=== PATIENT | female | born 1965 | race Caucasian/White ===

== ENCOUNTER 2016-10-02 11:15 | Outpatient (RCR) | payer BC ==
[~2016-10-02 11:15] MED LIST: EXCEDRIN ES PO; MULTIPLE VITAMI1 CAP PO; PRIL40 PO
== END 2016-10-03 11:05 ==
LOC: MKS.ESL.PT 11:15
DX: M54.5 Low back pain (principal)
CPT/HCPCS: G0283-GP

== ENCOUNTER → 2017-04-04 | Outpatient (CLI) | payer BC | LOC: COL.RAD 07-22 10:30 | DX: Z01.89 Encounter for other specified special examinations (principal) ==

== ENCOUNTER 2018-07-03 00:01 | Emergency (ER) | payer BC ==
[~2018-07-03] VITALS: Ht 167.6 cm; Wt 101.7 kg
[2018-07-03 00:09] VITALS: TEMP 97.1
[2018-07-03] MEDS ORDERED: ROBAXIN 50500 MG/TAB PO (00:26)
[2018-07-03] MEDS ORDERED: CELEBREX 200MG200 MG PO (00:26)
[2018-07-03] MEDS ORDERED: CYMBALTA 60MG60 MG PO (00:27)
[2018-07-03 00:39] LABS: BASO # 0.1 (0.0-0.2); BASO % 0.5 % (0.0-2.0); EOS # 0.3 (0.0-0.7); EOS % 2.1 % (0-4.0); GRAN # 9.3 (1.4-6.5); GRAN % 68.4 % (42.2-75.2); HEMATOCRIT 38.4 % (37.0-47.0); LYMPH # 3.2 (1.2-3.4); LYMPH % 23.5 % (20.0-51.0); MEAN CELL VOLUME 87 fl (80.0-100.0); MEAN CORPUSCULAR HEMOGLOBIN 30 pg (27.0-31.0); MEAN CORPUSCULAR HGB CONC 34 g/dl (33.0-37.0); MEAN PLATELET VOLUME 8.8 fl (7.4-10.4); MONO # 0.7 (0.1-0.6); MONO % 4.8 % (1.7-9.3); PLATELET COUNT 333 K/mm3 (130-400); RED BLOOD COUNT 4.41 M/mm3 (4.10-5.30); REDCELL DISTRIBUTION WIDTH-CV 12.9 % (11.5-14.5)
[2018-07-03 00:48] LABS: ALANINE AMINOTRANSFERASE < 6 U/L (9-52); ALBUMIN 4.3 gm/dL (3.5-5.0); ALKALINE PHOSPHATASE 124 U/L (50-136); ANION GAP 13 mmol/L (7-16); AST,SGOT 19 U/L (15-37); BILIRUBIN,TOTAL 0.2 mg/dL (0.0-1.0); BLOOD UREA NITROGEN 13 mg/dL (7-17); C-REACTIVE PROTEIN 0.5 mg/dL (0.0-0.9); CALCIUM 10.1 mg/dL (8.4-10.2); CARBON DIOXIDE 20 mmol/L (22-30); CHLORIDE 111 mmol/L (98-107); CREATININE, serum 0.87 (0.52-1.25); GLUCOSE 161 mg/dL (74-106); LIPASE 174 U/L (23-300); POTASSIUM 4.2 mmol/L (3.4-5.0); SODIUM 144 mmol/L (137-145); TOTAL PROTEIN 7.6 gm/dL (6.4-8.2)
[2018-07-03 01:35] LABS: COLLECTION METHOD CLEAN CATCH
[2018-07-03 01:54] LABS: MUCOUS Present /lpf; PH 5 (5-8); URINE APPEARANCE Cloudy; URINE BACTERIA Rare /hpf; URINE BILIRUBIN Negative (NEGATIVE); URINE BLOOD 3+ (NEGATIVE); URINE COLOR Amber; URINE GLUCOSE Negative (NEGATIVE); URINE KETONE Negative (NEGATIVE); URINE LEUKOCYTE ESTERASE Negative (NEGATIVE); URINE NITRATE Negative (NEGATIVE); URINE PROTEIN(semi-quant) 2+ (NEGATIVE); URINE RBC >50 /hpf; URINE UROBILINOGEN Negative (NEGATIVE)
[2018-07-03] MEDS ORDERED: ZOFRAN ODT4 MG PO (03:24)
[2018-07-03] MEDS ORDERED: PERCOCET 325 MG1 TA2 PO (03:24)
[2018-07-03] MEDS ORDERED: FLOMAX 0.40.4 MG/CAP PO (03:44)
[2018-07-03] MEDS ORDERED: CEPHALEXIN500 M1 PO (03:44)
[2018-07-03 03:55] VITALS: BP 124/81; PULSE 75
[2018-07-03] MEDS ORDERED: ZOFRAN 4MG T4 MG/TAB PO (03:57)
== END 2018-07-03 03:55 | disposition home or self-care (01) ==
LOC: COL.ER 00:01
PROVIDERS: Nurse Practitioner
DX: N13.2 Hydronephrosis with renal and ureteral calculous obstruction (principal); F41.9 Anxiety disorder, unspecified; F32.9 Major depressive disorder, single episode, unspecified; Z90.710 Acquired absence of both cervix and uterus; Z98.51 Tubal ligation status; Z90.49 Acquired absence of other specified parts of digestive tract; F17.210 Nicotine dependence, cigarettes, uncomplicated
CPT/HCPCS: J1170; J1885; J2405; J7030

== ENCOUNTER 2018-07-03 15:01 | Observation (INO) | payer BC ==
[2018-07-03] VITALS (9 sets, daily range): BP systolic 104–132; BP diastolic 69–89; PULSE 62–96; TEMP 98–98.5
[~2018-07-03] VITALS: Ht 167.6 cm; Wt 101.3 kg
[~2018-07-03 15:01] MED LIST changes: +CELEBREX 200MG200 MG PO; +CEPHALEXIN500 M1 PO; +CYMBALTA 60MG60 MG PO; +FLOMAX 0.40.4 MG/CAP PO; +PERCOCET 325 MG1 TA2 PO; +ROBAXIN 50500 MG/TAB PO; +ZOFRAN 4MG T4 MG/TAB PO; +ZOFRAN ODT4 MG PO
--- NOTE | 2018-07-03 16:00 | NUR ---
Pt arrived to floor at this time, ambulated with admission staff to room but in pain. Will get orders and get prepped for anticipated surgery time of 1700.
--- NOTE | 2018-07-03 17:00 | NUR ---
Pt left floor at this time via bed with OR staff. Consent signed. IV started to RW by student nurse. PRN pain meds provided. Will await return.
--- NOTE | 2018-07-03 18:50 | NUR ---
Pt to floor from PACU. No acute distress noted. Resp even and unlabored. Lungs clear. BS+. Goncalves to dependent drainage- urine is clear, pink. No clots noted. Pt denies nausea or pain at this time. VSS. Will continue to monitor.
--- NOTE | 2018-07-03 20:02 | NUR ---
Pt c/o pain 6/10 in bladder. Pain is described at cramping. PRN pain meds administered.
--- NOTE | 2018-07-03 21:10 | NUR ---
Pt continues to c/o cramping bladder pain and feeling of fullness. Bladder scan shows 0-30mL in bladder. Goncalves is draining clear, pink urine.
--- NOTE | 2018-07-03 21:18 | NUR ---
Dr Bean called about pts bladder spasms. Orders received for Flomax x1 and PRN Levsin.
--- NOTE | 2018-07-03 23:18 | NUR ---
Pt c/o pain 7/10 in bladder. PRN pain meds given. Pt alert and awake.
[2018-07-04] VITALS: BP 115/70; PULSE 85; TEMP 98.3
[2018-07-04 04:00] VITALS: BP 109/66; PULSE 57; TEMP 98.2
--- NOTE | 2018-07-04 06:15 | NUR ---
Pt resting with HOB elevated this AM. Pt reports that pain is much better this AM. Goncalves catheter to dependent drainage. Output is clear, light pink. No futher needs noted.
--- NOTE | 2018-07-04 07:00 | NUR ---
Pt resting in bed at this time. She is looking over the menu to order breakfast. Minimal pain at this time, pink tinged urine in the hendricks bag, no needs at this time and is hoping to go home today.
[2018-07-04 07:49] VITALS: BP 118/71; PULSE 70; TEMP 99.3
--- NOTE | 2018-07-04 09:00 | NUR ---
Pt had significant increase in pain in her lower pelvic area. Schedule pain medication given. Goncalves removed per physician order. Informed her that she may feel as if she needs to go, but is unable to right at first due to the bladder spasms. Pt has had breakfast and tolerated with no problems.
--- NOTE | 2018-07-04 09:01 | NUR ---
JADE met with the patient to discuss a discharge plan. The patient lives in [place] with her Juwan. The patient does not use any DME and the patient reports independence with ADLs. The patient's PCP is Dr. Castillo and the patient receives her medication from [facility]. The patient reports no difficulties obtaining her medications. The patient does not have advanced directives in the EMR, but she was interested in obtaining a DPOA-HC form. SW provided and explained the form to the patient. The patient plans to return home upon discharge. There are no additional needs at this time.
--- NOTE | 2018-07-04 11:30 | NUR ---
Dr Bean in to see patient. Discharge orders wrote. Discussed pain and bladder spasms as well as home instructions. No needs at this time, will continue to monitor.
[2018-07-04 12:23] VITALS: BP 116/61; PULSE 78; TEMP 98.1
--- NOTE | 2018-07-04 12:30 | NUR ---
Pt having significant increase in pain. Will give PRN medication.
--- NOTE | 2018-07-04 14:00 | NUR ---
Pt reported that the pain medication worked well and she is wanting to go home. Informed her that I would need to contact the physician as there are no scripts on the chart. Pt stated she was ok with that as she would order something to eat.
--- NOTE | 2018-07-04 15:30 | NUR ---
Pt tolerated her lunch with no nausea. Newly ordered medications given. Reviewed discharge instructions with her at this time. Reviewed prescriptions as well. No other needs, patient will get dressed and informed to ring when she is ready.
--- NOTE | 2018-07-04 15:54 | NUR ---
Pt being escorted out at this time.
--- NOTE | 2018-07-04 15:56 | NUR ---
INT removed by José Miguel RN
== END 2018-07-04 15:56 | disposition home or self-care (01) ==
LOC: SDCO 15:01 → EDSTATUS 15:22 → SURG 15:24
PROVIDERS: ADMIT Urology
DX: N20.1 Calculus of ureter (principal); Z79.899 Other long term (current) drug therapy; Z90.710 Acquired absence of both cervix and uterus; K21.9 Gastro-esophageal reflux disease without esophagitis; K44.9 Diaphragmatic hernia without obstruction or gangrene; G43.809 Other migraine, not intractable, without status migrainosus; R20.2 Paresthesia of skin; Z87.891 Personal history of nicotine dependence; Z87.442 Personal history of urinary calculi; N39.0 Urinary tract infection, site not specified; Z90.49 Acquired absence of other specified parts of digestive tract; Z80.9 Family history of malignant neoplasm, unspecified; E66.9 Obesity, unspecified
CPT/HCPCS: A4314; C1769; C2617; G0378; G0379; J0690; J1100; J1170; J1885; J1956; J2270; J2405; J2704; J3010; J7030; Q9967

== ENCOUNTER 2018-07-10 06:02 | Day surgery (SDC) | payer BC ==
[2018-07-10] VITALS (8 sets, daily range): BP systolic 105–125; BP diastolic 70–87; PULSE 77–93; TEMP 98.4–99
[~2018-07-10] VITALS: Ht 167.6 cm; Wt 99.5 kg
[2018-07-10] MEDS ORDERED: MULTI VITAMINS1 TAB PO (06:45)
[2018-07-10] MEDS ORDERED: ZYRTEC ALLERGY10 MG PO (06:45)
[2018-07-10] MEDS ORDERED: AMBEREN PO (06:46)
[2018-07-10] MEDS ORDERED: PROBIOTIC FORMU1 CAP PO (06:46)
[2018-07-10] MEDS ORDERED: MELATONIN1 MG PO (06:48)
[2018-07-10] MEDS ORDERED: K-TAB10 PO (06:48)
[2018-07-10] MEDS ORDERED: VITAMINC1000TA PO (06:49)
[2018-07-10] MEDS ORDERED: MAGNESIUM CHELA27 MG PO (06:49)
[2018-07-10] MEDS ORDERED: PYRIDIUM 100MG100 MG PO (06:50)
[2018-07-10] MEDS ORDERED: CRANBERRY FRUI425 MG PO (06:51)
[2018-07-10] MEDS ORDERED: CEPHALEXIN500 M1 PO (06:54)
[2018-07-10] MEDS ORDERED: MELATONIN5 M1 SL (07:53)
[2018-07-10] MEDS ORDERED: NATURAL POTASS595 MG PO (07:54)
--- NOTE | 2018-07-10 09:57 | NUR ---
Pt to [facility] via cart from PACU. Pt awake and alert. Rates pain to LLQ 6/10. Pt describes pain as "Cramping." Pt's friend in room. Pt taking ice chips without difficulties. Denies nausea at this time. Will continue to monitor. Pt wanting to rest. Call light within reach.
--- NOTE | 2018-07-10 10:15 | NUR ---
Pt continues to rest. Denies needs. Pt rates pain 4/10 to LLQ. Will continue to monitor. Call light within reach.
[2018-07-10] MEDS ORDERED: NORCO 325 MG-51 TAB PO (10:26)
[2018-07-10] MEDS ORDERED: SENNA-S 50 MG-81 TAB PO (10:27)
--- NOTE | 2018-07-10 10:30 | NUR ---
Pt sleeping. Respirations even and unlabored. Call light within reach.
--- NOTE | 2018-07-10 10:45 | NUR ---
Pt continues to sleep. Respirations even and unlabored. Call light within reach.
--- NOTE | 2018-07-10 11:12 | NUR ---
Pt awake. Pt rates pain 4/10 to LLQ. Pudding and water given per request. Call light within reach.
--- NOTE | 2018-07-10 11:30 | NUR ---
[place] 5mg 1 tablet po given for pain per PRN orders. Will continue to monitor.
--- NOTE | 2018-07-10 11:42 | NUR ---
Pt up to restroom with stand by assist. Pt voids large amount of bloody urine. Pt back to room. Pt up to dress. Call light within reach.
--- NOTE | 2018-07-10 12:00 | NUR ---
Discharge instructions reviewed. Pt voices understanding. IV site discontinued with all parts intact.
--- NOTE | 2018-07-10 12:15 | NUR ---
Pt escorted to private car via wheel chair. Pt accompanied home by her friend.
== END 2018-07-10 12:15 | disposition home or self-care (01) ==
LOC: SDCO 06:02
DX: N20.2 Calculus of kidney with calculus of ureter (principal); Z87.440 Personal history of urinary (tract) infections; Z90.49 Acquired absence of other specified parts of digestive tract; Z90.710 Acquired absence of both cervix and uterus; Z79.899 Other long term (current) drug therapy; Z87.891 Personal history of nicotine dependence; Z82.49 Family history of ischemic heart disease and other diseases of the circulatory system; Z80.9 Family history of malignant neoplasm, unspecified; Z83.3 Family history of diabetes mellitus
CPT/HCPCS: C1769; C2617; J0690; J1100; J1170; J1885; J2405; J2550; J2704; J3010

== ENCOUNTER 2018-07-31 08:32 | Day surgery (SDC) | payer BC ==
[~2018-07-31] VITALS: Ht 167.6 cm; Wt 100.2 kg
[2018-07-31] VITALS (11 sets, daily range): BP systolic 97–123; BP diastolic 57–82; PULSE 67–85; TEMP 97.6–99
[~2018-07-31 08:32] MED LIST changes: +AMBEREN PO; +CRANBERRY FRUI425 MG PO; +K-TAB10 PO; +MAGNESIUM CHELA27 MG PO; +MELATONIN1 MG PO; +MELATONIN5 M1 PO; +MULTI VITAMINS1 TAB PO; +NATURAL POTASS595 MG PO; +NORCO 325 MG-51 TAB PO; +PROBIOTIC FORMU1 CAP PO; +PYRIDIUM 100MG100 MG PO; +SENNA-S 50 MG-81 TAB PO; +VITAMINC1000TA PO; +ZYRTEC ALLERGY10 MG PO
--- NOTE | 2018-07-31 09:13 | NUR ---
TO [facility] AT 0844- CALL LIGHT IN REACH FRIEND AT BEDSIDE
[2018-07-31] MEDS ORDERED: ALIVE PRENATAL1 EACH PO (09:26)
[2018-07-31] MEDS ORDERED: NATURAL MAGNES200 MG PO (09:28)
[2018-07-31] MEDS ORDERED: CRANBERRY500 M3 PO (09:30)
[2018-07-31] MEDS ORDERED: THE MEDICINE S200 M2 PO (09:33)
--- NOTE | 2018-07-31 11:28 | NUR ---
Pt transported back from PACU via cart and this RN to Ambulatory bay 5. Pt transported on 2L O2 via NC. Monitors on and alarms set. Call light within reach. Pt states that pain in chest is getting better, but states pain in right flank sharp and deep. Pt states this pain is similar to pain following her previous surgeries. Pt has no complaints of nausea or vomiting. Friend brought to patient room. Pt requests chocolate pudding, ice, and grape juice.
--- NOTE | 2018-07-31 11:45 | NUR ---
Pt continues to rate pain at 7 out of 10 at right flank.
--- NOTE | 2018-07-31 12:05 | NUR ---
Meds for pain control being clarified. Pt is alert and voices no other complaints other than the pain still rated at 7 out of 10.
--- NOTE | 2018-07-31 12:35 | NUR ---
Pt ambulates to restroom with this RN assist without complication.
--- NOTE | 2018-07-31 12:43 | NUR ---
Pt ambulates back to bay 5. Pt states she voided "a lot" and had "a little bit of blood" in her urine.
--- NOTE | 2018-07-31 13:00 | NUR ---
Pt rates pain at level 3 out of 10 and "tolerable." Pt has no other complaints.
--- NOTE | 2018-07-31 13:35 | NUR ---
Discharge instructions given to patient and friend. All questions answered to their satisfaction. Handed to them are a thank you card, discharge instructions, procedural information, and a discharge packet.
--- NOTE | 2018-07-31 13:47 | NUR ---
Pt transferred out of hospital via wheelchair and this RN assist to private vehicle driven by friend.
== END 2018-07-31 13:47 | disposition home or self-care (01) ==
LOC: SDCO 08:32
DX: N20.1 Calculus of ureter (principal); Z90.49 Acquired absence of other specified parts of digestive tract; Z90.710 Acquired absence of both cervix and uterus; Z87.891 Personal history of nicotine dependence; Z80.9 Family history of malignant neoplasm, unspecified; Z83.3 Family history of diabetes mellitus; Z82.49 Family history of ischemic heart disease and other diseases of the circulatory system; G89.29 Other chronic pain; M54.5 Low back pain; G43.909 Migraine, unspecified, not intractable, without status migrainosus; M19.90 Unspecified osteoarthritis, unspecified site
CPT/HCPCS: C1769; J0690; J1100; J1885; J2270; J2405; J2550; J2704; J3010; J7120

== ENCOUNTER 2019-02-04 10:00 | Outpatient (RCR) | payer OTHER ==
[~2019-02-04 10:00] MED LIST changes: +ALIVE PRENATAL1 EACH PO; +CRANBERRY500 M3 PO; +NATURAL MAGNES200 MG PO; +THE MEDICINE S200 M2 PO
== END 2019-04-21 | disposition home or self-care (01) ==
LOC: WSOT
DX: M77.11 Lateral epicondylitis, right elbow (principal)

== ENCOUNTER 2019-04-12 09:49 | Outpatient (RCR) | payer OTHER | END 2019-06-22 13:09 | disposition home or self-care (01) | LOC: WSOH 09:49 | DX: M77.11 Lateral epicondylitis, right elbow (principal); F32.9 Major depressive disorder, single episode, unspecified; F41.9 Anxiety disorder, unspecified; L40.9 Psoriasis, unspecified; Z90.710 Acquired absence of both cervix and uterus; Z90.49 Acquired absence of other specified parts of digestive tract; Z98.890 Other specified postprocedural states; Z96.612 Presence of left artificial shoulder joint; Z87.891 Personal history of nicotine dependence; Y99.0 Civilian activity done for income or pay ==

== ENCOUNTER → 2020-06-29 | Outpatient (CLI) | payer BC | LOC: MC.RAD 10:22 | DX: Z12.31 Encounter for screening mammogram for malignant neoplasm of breast (principal) ==

== ENCOUNTER → 2020-10-16 | Outpatient (CLI) | payer BC | LOC: COL.RAD 10-13 12:30 | DX: M47.816 Spondylosis without myelopathy or radiculopathy, lumbar region (principal); M54.42 Lumbago with sciatica, left side; M54.41 Lumbago with sciatica, right side ==

== ENCOUNTER → 2021-03-05 | Outpatient (CLI) | payer OTHER | LOC: COL.RAD 02-23 09:45 | DX: M47.812 Spondylosis without myelopathy or radiculopathy, cervical region (principal); M48.02 Spinal stenosis, cervical region ==

== ENCOUNTER 2021-07-29 18:33 | Day surgery (SDC) | payer OTHER ==
[~2021-07-29] VITALS: Ht 167.6 cm; Wt 110.0 kg
[~2021-07-29 18:33] MED LIST changes: +ALIVE ONCE DAI1 EACH PO; -ALIVE PRENATAL1 EACH PO; -PROBIOTIC FORMU1 CAP PO; +PROBIOTIC-MAJOR PO
[2021-07-29 19:34] LABS: BASO # 0.1 K/mm3 (0.0-0.2); BASO % 0.4 % (0.0-2.0); EOS # 0.1 K/mm3 (0.0-0.7); EOS % 0.5 % (0.0-4.0); GRAN # 16.3 K/mm3 (1.4-6.5); GRAN % 79.3 % (42.2-75.2); HEMOGLOBIN 13.1 g/dl (12.5-16.0); LYMPH # 2.6 K/mm3 (1.2-3.4); LYMPH % 12.5 % (20.0-51.0); MEAN CELL VOLUME 86 fl (80.0-100.0); MEAN CORPUSCULAR HEMOGLOBIN 29 pg (27-31); MEAN CORPUSCULAR HGB CONC 34 g/dl (33.0-37.0); MEAN PLATELET VOLUME 9.4 fl (7.4-10.4); MONO # 1.3 K/mm3 (0.1-0.6); MONO % 6.1 % (1.7-9.3); PLATELET COUNT 360 K/mm3 (130-400); RED BLOOD COUNT 4.54 M/mm3 (4.10-5.30); REDCELL DISTRIBUTION WIDTH-CV 13.6 % (11.5-14.5)
[2021-07-29 20:11] LABS: COLLECTION METHOD CLEAN CATCH
[2021-07-29 20:19] LABS: MUCOUS Present (NOT PRESENT); PH 5 (5-8); URINE APPEARANCE Cloudy (CLEAR/HAZY); URINE BACTERIA None Seen /hpf (NONE SEEN); URINE BILIRUBIN Negative (NEGATIVE); URINE BLOOD 3+ (NEGATIVE); URINE COLOR Amber (YELLOW); URINE GLUCOSE Negative (NEGATIVE); URINE KETONE Negative (NEGATIVE); URINE LEUKOCYTE ESTERASE Negative (NEGATIVE); URINE NITRATE Positive (NEGATIVE); URINE PROTEIN(semi-quant) 1+ (NEGATIVE); URINE RBC >50 /hpf (0-2)
[2021-07-29 20:30] LABS: BILIRUBIN,TOTAL 0.3 mg/dL (0.2-1.2); CALCIUM 9.7 mg/dL (8.4-10.2); CREATININE, serum 1.45 mg/dL (0.57-1.11); TOTAL PROTEIN 7.8 gm/dL (6.2-8.1)
--- NOTE | 2021-07-29 23:30 | NUR ---
PT ARRIVES VIA CART FROM ED TO ROOM 324. IS ALERT AND ORIENTED X4. HAS INT TO LT WRIST. RATES PAIN 3/10 TO LLQ.
[2021-07-29 23:55] VITALS: BP 102/68; PULSE 79
[2021-07-30] VITALS (17 sets, daily range): BP systolic 90–142; BP diastolic 59–91; PULSE 64–82; TEMP 98–98.4
[2021-07-30] MEDS ORDERED: ABILIFY5 MG PO (00:03)
[2021-07-30] MEDS ORDERED: TOPAMAX50 MG PO (00:04)
--- NOTE | 2021-07-30 00:15 | NUR ---
ADMISSION QUESTIONS COMPLETE. INITIATED ASPHALT PAVING MACHINE OPERATOR DILAUDID WITH INSTRUCTION ON USAGE. IVF INFUSING AT 125CC/HR TO LEFT WRIST. SIP OF WATER GIVEN FOR DRY MOUTH, OTHERWISE NPO.
--- NOTE | 2021-07-30 06:00 | NUR ---
PT HAS USED 1MG OF AD OPERATIONS INTERN DILAUDID THIS SHIFT. RATES PAIN 2/10. HAS BEEN NPO.
--- NOTE | 2021-07-30 09:49 | NUR ---
JADE met with the patient to discuss discharge plan. The patient lives in [place] with her , Juwan (ph#[phone]). She reports independence with ADLs and does not have any DME. The patient's PCP is Dr. Remy Michel and she receives her medications from [facility]. The patient does not have a DPOA-HC, but she was interested in obtaining a form. JADE provided. The patient plans on returning home with her upon discharge. No additional needs at this time. *Discharge plan: home with *
--- NOTE | 2021-07-30 10:05 | NUR ---
Initial visit; Patient thanked Form Press Operator for looking in on her and keeping her in Form Press Operator's prayers.
--- NOTE | 2021-07-30 12:57 | NUR ---
PATIENT ALERT AND ORIENTED X3. VSS. PATIENT HERER FOR KIDNEY STONE. PATIENT COMPLAINS OF PAIN 2/. METAL BUFFER PUMP IN USE. IV TO LEFT WRIST WITH NS @125 RUNNING. ASSESSMENT PERFORMED. CALL LIGHT WITHIN REACH.
[2021-07-30] MEDS ORDERED: NORCO 325 MG-51 TAB PO (17:49)
== END 2021-07-30 20:47 | disposition home or self-care (01) ==
LOC: COL.ER 18:33 → SURG 23:02 → SDCO 23:02 → SURG 23:02 → COL.ER 23:02 → SURG 23:03 → SDCO 07-30 20:47 → SURG 07-30 20:47
PROVIDERS: Emergency Medicine
DX: N13.2 Hydronephrosis with renal and ureteral calculous obstruction (principal); N39.0 Urinary tract infection, site not specified
CPT/HCPCS: OP; C1769; G0378; J0690; J0696; J1100; J1170; J1885; J2270; J2405; J2543; J2704; J2765; J3010; J7030; J7120; Q9967

== ENCOUNTER → 2023-05-02 | Outpatient (CLI) | payer BC ==
[~2023-05-02] MED LIST changes: +ABILIFY5 MG PO; +TOPAMAX50 MG PO
== END ==
LOC: MC.RAD 14:09
DX: Z12.31 Encounter for screening mammogram for malignant neoplasm of breast (principal)